=== PATIENT | female | born 1955 | race Two or more races ===

== ENCOUNTER 2024-08-29 11:51 | Emergency (ER) | payer BC ==
[~2024-08-29] VITALS: Ht 160 cm; Wt 100.5 kg
[2024-08-29] MEDS: acetaminophen 325mg tablet PO ONE (13:21)
[2024-08-29] MEDS: ibuprofen tablet 400 MG TABLET PO ONE (13:21)
[2024-08-29 15:14] VITALS: BP 148/74; PULSE 65; RESP 15; TEMP 97.8; O2SAT 98
== END 2024-08-29 15:16 | disposition home or self-care (01) ==
LOC: ER 11:52
DX: S06.0XAA Concussion with loss of consciousness status unknown, initial encounter (principal); W11.XXXA Fall on and from ladder, initial encounter; Y93.89 Activity, other specified; Y92.89 Other specified places as the place of occurrence of the external cause; Y99.8 Other external cause status
CPT/HCPCS: 70450; 99284